=== PATIENT | female | born 1960 | race Caucasian/White ===

== ENCOUNTER 2020-08-27 23:40 | Emergency (ER) | payer OTHER, SELFPAY ==
[2020-08-28 00:25] LABS: HEMOGLOBIN 13.9 gm/dl (12.3-15.3); RED BLOOD COUNT 4.76 M/UL (4.00-5.10); WHITE BLOOD COUNT 6.2 K/UL (4.5-11.0)
[2020-08-28 00:29] LABS: BUN/CREATININE RATIO 30 (0-10)
== END 2020-08-28 04:05 | disposition home or self-care (01) ==
LOC: ER1 23:40
PROVIDERS: Emergency Medicine
DX: R07.9 Chest pain, unspecified (principal); R10.10 Upper abdominal pain, unspecified; R79.89 Other specified abnormal findings of blood chemistry; R06.02 Shortness of breath; R00.0 Tachycardia, unspecified; I10 Essential (primary) hypertension; Z90.13 Acquired absence of bilateral breasts and nipples
CPT/HCPCS: 71045; 80053; 82550; 82553; 83690; 83735; 83874; 84100; 84484; 85025; 85379; 85610; 85730; 93005; 99285; Q9967

== ENCOUNTER → 2020-08-31 | Outpatient (CLI) | payer OTHER, SELFPAY | LOC: US 09:22 | DX: R10.9 Unspecified abdominal pain (principal); R74.8 Abnormal levels of other serum enzymes | CPT/HCPCS: 76705 ==

== ENCOUNTER 2021-01-18 23:00 | Emergency (ER) | payer OTHER ==
[2021-01-19 00:08] LABS: RED BLOOD COUNT 4.35 M/UL (4.00-5.10)
[2021-01-19 00:34] LABS: BUN/CREATININE RATIO 31 (0-10)
== END 2021-01-19 04:08 | disposition home or self-care (01) ==
LOC: ER1 23:00
PROVIDERS: Physician Assistant
DX: R07.89 Other chest pain (principal); I10 Essential (primary) hypertension; E78.5 Hyperlipidemia, unspecified; Z88.8 Allergy status to other drugs, medicaments and biological substances; Z79.899 Other long term (current) drug therapy
CPT/HCPCS: 71045; 80053; 82550; 82553; 83874; 84484; 85025; 93005; 99284